=== PATIENT | male | born 1990 | race Caucasian/White ===

== ENCOUNTER 2018-11-22 12:49 | Emergency (ER) | payer OTHER ==
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
[2018-11-22] MEDS ORDERED: predniSONE 20 MG TAB PO ONE (15:23)
[2018-11-22] MEDS ORDERED: HYDROCODONE/APAP 5/325 TAB PO ONE (15:23)
[2018-11-22] MEDS ORDERED: CEPHALEXIN 500 MG CAP PO ONE (15:23)
[2018-11-22 15:46] VITALS: BP 109/75
[2018-11-22] MEDS ORDERED: HYDROCOD/APAP 5/325 PREPACK#6 BTL TAKEHOME ONE (15:53)
[2018-11-22] MEDS ORDERED: ONDANSETRON 4MG PREPACK#2 BTL TAKEHOME ONE (15:53)
== END 2018-11-22 16:17 | disposition home or self-care (01) ==
DX: J03.90 Acute tonsillitis, unspecified (principal); R55 Syncope and collapse; S30.0XXA Contusion of lower back and pelvis, initial encounter; V18.4XXA Pedal cycle driver injured in noncollision transport accident in traffic accident, initial encounter; Y93.55 Activity, bike riding; Y92.9 Unspecified place or not applicable; Y99.9 Unspecified external cause status
CPT/HCPCS: J7512